=== PATIENT | male | born 1990 | race Native Hawaiian/Other Pacific Islander ===

== ENCOUNTER 2025-03-03 01:18 | Emergency (ER) | payer SELFPAY ==
[2025-03-03 01:19] VITALS: BP 172/89; BMI 31.9
--- NOTE | 2025-03-03 02:03 | ED.GENMED ---
History of Present Illness
General
Chief Complaint: Alcohol Problem
Source: patient and ambulance crew
Time Seen by Provider: 03/03/25 01:49
History of Present Illness
History of Present Illness:
34-year-old male with no reported past medical history presenting to the emergency department with EMS for evaluation after he had been out consuming alcoholic beverages with friends, reportedly smoked some substance that patient is not sure what
exactly it was when he became acutely altered, tremulous, it is believed that friends contacted EMS who noted the patient was significantly tachycardic and combative upon their arrival, received 5 mg of Versed with some improvement of the agitation.
Patient states that he does consume alcohol approximately 5 times a week. He has no physical complaints at this time. Denies any SI, HI, auditory or visual hallucinations.
Past History
Past History
ED Past Medical History: None
ED Past Surgical History: None
Social History
Tobacco: Smoker
Alcohol: Occasional
Drug: Marijuana
Personal: Single
Living: with family
Review of Systems
Review of Systems
All Other Systems: ROS reviewed and negative except as documented in HPI and ROS
Phy Exam
Physical Exam
Physical Exam:
GENERAL: Alert , in no apparent distress
HEAD: Normocephalic atraumatic
EYE: conjunctiva clear, pupils 5 mm bilateral
NECK: Supple,
ENT: o/p clr, mmm.
CARDIAC: Tachycardic rate and rhythm with rates between 120 and 120 8 bpm
LUNGS: Clear breath sounds bilaterally, no acute respiratory distress, no wheezes/rales/rhonchi
NEUROLOGICAL: Alert and oriented
SKIN: Warm and dry, skin intact.
MUSCULOSKELETAL: well perfused.
PSYCH: Normal and appropriate interaction.
Scores
Heart Failure Risk
Heart Failure Risk Score: Not Applicable
Heart Score for Chest Pain Patients
STEMI patient?: Not applicable
Withdrawal Assessment of Alcohol
Withdrawal Assessment Completed?: Not applicable
Course
Orders/Labs/Results
Orders:
Orders
03/03/25 01:23
Electrocardiogram (*1) Urgent
Reason for Study: Bradycardia / Tachycardia
EKG- Treatment ONCE
Vital Signs
Initial and Last Documented VS:
Initial Vital Signs
Temp Pulse Resp BP Pulse Ox
97.2 F 136 17 172/89 95
03/03/25 01:19 03/03/25 01:19 03/03/25 01:19 03/03/25 01:19 03/03/25 01:19
Last Documented Vital Signs
Temp Pulse Resp BP Pulse Ox
97.2 F 78 18 137/88 99
03/03/25 01:19 03/03/25 05:49 03/03/25 05:49 03/03/25 05:49 03/03/25 05:49
MDM/Problems Addressed
Differential Diagnosis Includes:
Acute alcohol intoxication
substance abuse
Substance withdrawal considered but given his ingestions earlier this evening much less likely for an acute withdrawal
Less concern for any infectious etiology
MDM/Problems Addressed:
34-year-old male presenting to the ER for evaluation of acute intoxication of alcohol and other unknown substance. Patient reportedly combative with EMS, received Versed, now much more calm. Patient appears acutely intoxicated. Will observe in
the ER, anticipate discharge home. At present time patient is declining any alcohol or substance use treatment.
*Pulse Oximetry
SaO2: 95
Oxygen Mode of Delivery: Room air
Patient hypoxic: no
*EKG
Heart Rate: 128
Rate: tachycardiac
Rhythm: sinus
Ischemia: no ischemia
*Metallurgical Technician Interpretation
Rate: tachycardiac
Heart Rate: 124
Rhythm: sinus
*Critical Care Note
Total Time (30-74mins, 75-104mins- exclusive of procedures): Not Applicable
Patient Management
Escalation/DeEscalation of care consider admission/obs:
Patient observed in the ED, able to ambulate steadily out of the emergency department, vital signs significantly improved. Stable for discharge.
ED Attending Note
-
Portions of this chart may have been created with voice recognition software.� Occasional wrong word or��sound alike� substitutions may have occurred due to the inherent limitations of voice recognition software.
Discharge Plan
Departure
Patient Disposition: Home (Routine Discharge)
Date of Disposition: 03/03/25
Time of Disposition: 03:09
Patient with high blood pressure during this ER visit?: No
Discharge Problem:
Substance abuse
Instructions: Alcohol Use Disorder (DC)
Interventions
Interventions:
*Risk Screen - Suicide Last Done: 03/03/25 01:19
*General Assessment Last Done: 03/03/25 01:19
*Neglect/Abuse Screening Last Done: 03/03/25 01:19
*ED- Fall Risk Assessment Last Done: 03/03/25 01:39
*ED COVID-19 Vaccine History Last Done: 03/03/25 01:39
*Nursing Disposition Last Done: 03/03/25 06:09
ED- Neurological Assessment Last Done: 03/03/25 01:38
ED-Psychological Assessment Last Done: 03/03/25 01:38
Discharge Date and Time
Discharge Date/Time: 03/03/25 06:09
Print Language: [id number]
[2025-03-03 05:47] VITALS: BP 137/88
[2025-03-03 05:49] VITALS: BP 137/88
== END 2025-03-03 06:09 | disposition home or self-care (01) ==
LOC: EMR 01:18
PROVIDERS: EMERGENCY PHYSICIAN Emergency Medicine
DX: F19.10 Other psychoactive substance abuse, uncomplicated (principal); F10.90 Alcohol use, unspecified, uncomplicated; F17.200 Nicotine dependence, unspecified, uncomplicated; R00.0 Tachycardia, unspecified
CPT/HCPCS: 99283; 93005